=== PATIENT | female | born 1960 ===

== ENCOUNTER 2017-01-26 13:05 | Emergency (ER) | payer MEDICARE ==
[2017-01-26 13:23] VITALS: RESP 18; TEMP 98.2; O2SAT 100; BMI 23.4
--- NOTE | 2017-01-26 14:23 | ED PDOC ---
Arrival/HPI - General Chief Complaint: Lower Extremity Problem/Injury Time Seen by Provider: 01/26/17 13:16 - History of Present Illness Narrative History of Present Illness (Text): 01/26/17 14:06 56-year-old female with a history of liver disease, liver transplant with rejection, chronic jaundice, and chronic bilateral lower extremity swelling. Patient presents to the emergency department today stating she has some redness around her left lower leg which she noticed one day ago. Patient states that the redness is tender to palpation. Denies any fevers or chills. No other complaints. Patient states she has no abdominal pain or swelling, denies any nausea, vomiting, chest pain, shortness of breath, dyspnea on exertion. Patient states that the only reason she came into the emergency department is because she became concerned over the redness which she noted. States that she follows up with liver specialists at [facility]. Past Medical History - Provider Review Nursing Documentation Reviewed: Yes - Infectious Disease Hx of Infectious Diseases: None - Tetanus Immunization Tetanus Immunization: Unknown - Reproductive Menopause: Yes - Cardiac Hx Congestive Heart Failure: Yes Hx Hypertension: Yes (portal) - Pulmonary Hx Asthma: Yes (seasonal) - Renal Hx Kidney Stones: Yes (multiple) Other/Comment: lithotripsy, 5 ureteral stents, r nephrostomy removed 4 or 5 yrs ago - Endocrine/Metabolic Hx Diabetes Mellitus Type 2: Yes - Hematological/Oncological Hx Hepatitis C: Yes Other/Comment: Liver failure, wating for transplant - Integumentary Other/Comment: pt bruises easily, multiple bruises b/l legs - Musculoskeletal/Rheumatological Hx Falls: No - Genitourinary/Gynecological Hx Urinary Tract Infection: Yes (multiple) - Psychiatric Hx Anxiety: Yes Hx Depression: Yes Hx Substance Use: No - Surgical History Hx Appendectomy: Yes Hx Section: Yes Hx Cholecystectomy: Yes Hx Hysterectomy: Yes Other/Comment: liver tranplant sep - Anesthesia Hx Anesthesia: Yes Hx Anesthesia Reactions: No Hx Malignant Hyperthermia: No Family/Social History Family/Social History: Unknown Family HX Smoking Status: Former Smoker Hx Alcohol Use: No Hx Substance Use: No Allergies/Home Meds Allergies/Adverse Reactions: Allergies No Known Allergies Allergy (Verified 01/26/17 13:23) Home Medications: Home Meds Medication Instructions Recorded Confirmed Albuterol HFA [Ventolin HFA 90 1 puff IH Q4 PRN 03/26/16 01/26/17 mcg/actuation (8 g)] Aspirin [Ecotrin] 81 mg PO DAILY 03/26/16 01/26/17 Gabapentin [Neurontin] 100 mg PO TID 03/26/16 01/26/17 Insulin Glargine, Recombina 12 unit SC HS 03/26/16 01/26/17 [Lantus] Insulin Lispro [humALOG] See Protocol SC TID 03/26/16 01/26/17 Tacrolimus [Prograf] 1.5 mg PO BID 03/26/16 01/26/17 predniSONE 5 mg PO DAILY 03/26/16 01/26/17 Lactulose [Generlac] 10 gm PO BID 01/26/17 01/26/17 Methadone [Methadone] 10 mg PO QID 01/26/17 01/26/17 Mirtazapine [Remeron] 15 mg PO HS 01/26/17 01/26/17 Pantoprazole Sodium [Protonix] 40 mg PO BID 01/26/17 01/26/17 rifAXIMin [Xifaxan] 550 mg PO BID 01/26/17 01/26/17 Physical Exam - Physical Exam Narrative Physical Exam (Text): 01/26/17 14:27 - Review of Systems Constitutional: Normal. absent: Fatigue, Weight Change, Fevers Eyes: Normal ENT: denies sore throat, denies tristhmus Respiratory: Normal. absent: SOB, Cough, Sputum Cardiovascular: absent: Chest Pain, Palpitations, Syncope Gastrointestinal: Normal. absent: Abdominal Pain, Diarrhea, Nausea, Vomiting Genitourinary: Normal. absent: Dysuria, Frequency, Hematuria, vaginal bleeding Musculoskeletal: LE edema. absent: Arthralgias, Back Pain, Neck Pain Skin: Jaundice. no rashes, no erythema Neurological: absent: Focal Weakness Endocrine: Normal Hemo/Lymphatic: Normal Psychiatric: No suicidal or homicidal ideations Physical exam Patient appears age appropriate in no distress, speaking full sentences without difficulty - Systems Exam Head: Present: Atraumatic, Normocephalic Pupils: Present: PERRL Extroacular Muscles: Present: EOMI Conjunctiva: Present: icteric sclera Mouth: Present: Moist Mucous Membranes Neck: Present: Normal Range of Motion. No: MIDLINE TENDERNESS, Paraspinal Tenderness Respiratory/Chest: Present: Clear to Auscultation, Good Air Exchange. No: Respiratory Distress, Accessory Muscle Use, Tachypneic Cardiovascular: Present: Regular Rate and Rhythm, Normal S1, S2, Peripheal Pulses Present. No: Murmurs Abdomen: Present: Normal Bowel Sounds. No: Tenderness, Distention, Peritoneal Signs, Rebound, Guarding Back: Present: Normal Inspection. No: Midline Tenderness, Paraspinal Tenderness Upper Extremity: Present: Normal Inspection. No: Cyanosis, Edema Lower Extremity: Present: b/l LE swelling with pitting edema, no assymetry. LLE with 4 cm are of warmth and erythema around the medial malleolus with no sq emphysema, no pain out of proportion, distal neurovasc. intact. Neurological: Present: GCS=15, Speech Normal, cranial nerves II through XII fully intact with no cerebellar abnormality, neurosensory fully intact. No focal neurological deficits. Skin: Present: Jaundice, Warm, Dry, Normal Color. No: Rashes Lymphatic: Present: OX3, NI, NC Psychiatric: Present: Alert, Oriented x 3, Normal Insight, Normal Concentration Vital Signs Reviewed: Yes Vital Signs Temp Pulse Resp BP Pulse Ox 01/26/17 15:05 87 18 119/79 100 01/26/17 13:18 98.2 F 91 H 18 131/84 100 Temperature: Afebrile Blood Pressure: Normal Pulse: Regular Respiratory Rate: Normal Appearance: Positive for: Well-Appearing Pain Distress: None Mental Status: Positive for: Alert and Oriented X 3 Medical Decision Making ED Course and Treatment: 01/26/17 14:39 56yo female with LLE cellulitis. States she has liver disease with chronic b/l LE edema and swelling, also states she is chronically jaundice. Pt states the only reason she came into the ER is because of her cellulitis. Case JACKELYN Muller from [facility], confirms that pt's findings are chronic and that she has appt for f/u this upcoming wednesday. Agrees with dc on abx and outpatient f/u 01/26/17 17:00 prelim US neg per tech pt in no distress ambulates with walker states she feels comfortable being dc'd home with outpatient f/u Erythematous area was demarcated with a surgical marker Pt states she understands to return to the ER right away for new or worsening symptoms or for inability to f/u with PMD or specialist as instructed. Patient states that she fully agrees with and understands discharge instructions. States that she agrees with the plan and disposition. Verbalized and repeated discharge instructions and plan. I have given the patient opportunity to ask any additional questions. - RAD Interpretation Radiology Orders: 01/26/17 13:55 DUPLEX LOWER EXTRM VEIN LEFT [US] Stat Disposition/Present on Arrival - Present on Arrival Any Indicators Present on Arrival: No History of DVT/PE: No History of Uncontrolled Diabetes: No Urinary Catheter: No History of Decub. Ulcer: No History Surgical Site Infection Following: None - Disposition Have Diagnosis and Disposition been Completed?: Yes Diagnosis: Cellulitis Disposition: HOME/ ROUTINE Disposition Time: 17:01 Patient Plan: Discharge Condition: GOOD Discharge Instructions (ExitCare): Cellulitis (ED) Additional Instructions: PLEASE RETURN TO THE EMERGENCY DEPARTMENT FOR NEW OR WORSENING SYMPTOMS. RETURN RIGHT AWAY IF YOU CANNOT FOLLOW UP WITH YOUR PRIMARY CARE DOCTOR, CLINIC, OR SPECIALIST IN 1-2 DAYS. Please follow-up with your liver specialist as scheduled this coming Wednesday Return to the emergency department right away for worsening pain, swelling, redness, or if the redness comes outside the demarcated margins. Prescriptions: Cephalexin [Keflex] 500 mg PO TID #21 capsule
[2017-01-26 17:21] VITALS: BP 108/54; PULSE 79
--- NOTE | 2017-01-26 18:20 | US ---
PROCEDURE: Left lower extremity venous US HISTORY: Leg pain and swelling. Evaluate for DVT. PHYSICIAN(S): Luciano Mckeon MD. TECHNIQUE: Duplex sonography and color-flow Doppler with graded compression were used to evaluate the deep venous system of the left lower extremity. The exam is limited by edema. FINDINGS: The visualized deep venous system of the left lower extremity is sonographically normal and compressible. Normal wave forms and augmentation are seen. There is no sonographic evidence for deep venous thrombosis in the visualized segments of the left lower extremity. IMPRESSION: 1. No sonographic evidence for deep venous thrombosis in the visualized segments of the left lower extremity.
--- NOTE | 2017-01-28 10:12 | CARD ---
APPROVED REPORT EKG Measurement Heart [id number] <Conclusion> Normal sinus rhythm Normal ECG
== END 2017-01-26 17:19 | disposition home or self-care (01) ==
LOC: ED 13:05
DX: L03.116 Cellulitis of left lower limb (principal); I10 Essential (primary) hypertension; E11.9 Type 2 diabetes mellitus without complications; Z87.891 Personal history of nicotine dependence; Z94.4 Liver transplant status